=== PATIENT | female | born 1995 | race Caucasian/White ===

== ENCOUNTER 2019-06-05 11:16 | Day surgery (SDC) | payer OTHER ==
[~2019-06-05] VITALS: Ht 160 cm; Wt 86.3 kg
[2019-06-05] VITALS (16 sets, daily range): BP systolic 110–140; BP diastolic 56–78; PULSE 70–98; RESP 10–26; Ht 160 cm; Wt 86.3 kg
[~2019-06-05 11:16] MED LIST: CEFAZOLIN 2 GM/50 ML (PMX) 50 ML IVPB ONE; SOD CHLORIDE 0.9% 1,000 ML IV SCH
[2019-06-05] MEDS ORDERED: OMEP40CA6 ORAL (12:13)
--- NOTE | 2019-06-05 14:39 | PREAC ---
Date/Time of Note Date/Time of Note DATE: 06/05/19 TIME: 14:38 Anesthesia Eval and Record Evaluation Time Pre-Procedure Interview DATE: 06/05/19 TIME: 14:38 Age 23 Sex female NPO: 8 hrs Preoperative diagnosis gallstones Planned procedure Lap Jayna Past Medical History Past Medical History: Includes GI: GERD, Obesity Surgery & Anesthesia Issues No known issue Meds Anticoagulation: No Beta Rose within 24 hr: No Reason Beta Rose not given: Pt. not on B-Rose Reported Medications Omeprazole* (Omeprazole*) 40 Mg Capsule.dr, 1 CAP ORAL DAILY 06/05/19 Current Medications Sodium Chloride 1,000 ml @ 75 mls/hr [id number] IV ; Start 06/05/19 at 06:00; Stop 06/05/19 at 22:00 Meds reviewed: Yes Allergies Coded Allergies: No Known Allergy (Unverified , 06/05/19) Allergies Reviewed: Yes Labs/Studies Labs Reviewed: Reviewed by anesthesiologist test: Negative Pre-procedure Exam Last vitals Vital Signs Date Temp Pulse Resp B/P (MAP) Pulse Ox O2 O2 Flow FiO2 Time Delivery Rate 06/05/19 97.3 98 16 110/68 97 Room Air 12:07 (82) Airway: Adequate mouth opening, Adequate thyromental dist Mallampati: Mallampati II Teeth: Normal Lung: Normal Heart: Normal ASA Physical Status ASA physical status: 2 Emergency: None Planned Anesthetic General/MAC: ETT Nerve block: TAP (bilateral) Pre-operative Attestations Prior to commencing anesthesia and surgery, the patient was re-evaluated, there was verification of: *The patient's identity *The results of appropriate recent lab work and preoperative vital signs *The above evaluation not changing prior to induction *Anesthetic plan, risk benefits, alternative and complications discussed with patient/family; questions answered; patient/family understands, accepts and wishes to proceed. ISHA LANDEROS Jun 05, 2019 14:39
[2019-06-05] MEDS ORDERED: FENTAnyl 50 MCG/ML VIAL IV PRN ×2 (15:00)
[2019-06-05] MEDS ORDERED: ONDANSETRON 4 MG INJ IV PRN (15:00)
[2019-06-05] MEDS ORDERED: MEPERIDINE 25 MG INJ IV PRN (15:00)
[2019-06-05] MEDS ORDERED: METOCLOPRAMIDE 10 MG INJ IV PRN (15:00)
[2019-06-05] MEDS ORDERED: DIPHENHYDRAMINE 50 MG INJ IV PRN (15:00)
[2019-06-05] MEDS ORDERED: ALBUTEROL 0.083% (NEB) 2.5 MG/3 ML AMP HHN PRN (15:00)
[2019-06-05] MEDS ORDERED: HYDROmorphONE 1 MG/5 ML IV SYRINGE IV PRN ×3 (15:00)
[2019-06-05] MEDS ORDERED: DESFLURANE 15 MIN ONE (15:11)
[2019-06-05] MEDS ORDERED: FENTAnyl 50 MCG/ML VIAL ONE (15:11)
[2019-06-05] MEDS ORDERED: SUCCINYLCHOLINE CHLORIDE 100 MG/5 ML SYG IV ONE (15:11)
[2019-06-05] MEDS ORDERED: LIDOCAINE 1% (MDV) 20 ML INJ ONE (15:18)
[2019-06-05] MEDS ORDERED: PROPOFOL 20 ML ONE (15:53)
[2019-06-05] MEDS ORDERED: SUGAMMADEX SODIUM 200 MG/2 ML VIAL IV ONE (15:53)
[2019-06-05] MEDS ORDERED: CEFAZOLIN 1 GM INJ ONE (15:53)
[2019-06-05] MEDS ORDERED: ROCURONIUM 50 MG INJ ONE (15:53)
--- NOTE | 2019-06-05 16:06 | OPR ---
Date/Time of Note Date/Time of Note DATE: 06/05/19 TIME: 16:02 Operative Report Procedure Date: Jun 05, 2019 Preoperative Diagnosis symptomatic gallstones Postoperative Diagnosis same Operation/Procedure Performed laparoscopic cholecystectomy Surgeon see signature line Car Storer Dean Maher Anesthesia Type: general Estimated Blood Loss: 0 - 10 ml's Transfusion none Specimen gallbladder Grafts/Implants none Complications none Pt Condition Post Procedure: stable Indications This is a 23-year-old female with symptomatic gallstones. She requests surgical excision of her gallbladder. Risks alternatives benefits and personnel were discussed the patient. Patient expresses understanding and consents to the operation. Procedure Description Patient is taken to the OR and prepped and draped in usual sterile fashion. Surgical timeout was performed. IV antibiotics were given. Infraumbilical transverse incision is made with a 15 blade. Dissection with cautery was carried onto the fascia. The fascia is grasped with Roseanna's and divided with curved Calvin scissors. 0 Vicryl use this was placed into the fascia. Aggarwal trocar was introduced. Pneumoperitoneum was established. Midepigastric 12 mm optical trochars placed under direct visualization. Right upper quadrant right upper flank 5 mm optical trochars were placed under direct visualization. Upon initial inspection there is some adhesions to the gallbladder which taken down bluntly. The gallbladder was dilated. The gallbladder was grasped the fundus and retracted and lateral and cephalad direction. Careful dissection was made of the cystic duct and cystic artery with [place] graspers. The critical view was established. The cystic duct is divided with the clips proximal to distal and the division is performed laparoscopic scissors. Cystic artery was divided to close proximal to distal and the divisions performed lap scopic scissors. The gallbladder was taken of the gallbladder bed. Good hemostasis ensured. The gallbladder is retrieved Endo Catch bag. Minimal suction irrigation was used. All ports were removed under direct visualization. 0 Vicryl use this was tied down. Skin is closed and skin jeannette. A tap block was provided with the anesthesiologist at the beginning of the case. Dry dressings were applied. Shar QUICK Jun 05, 2019 16:06
[2019-06-05] MEDS ORDERED: HYDROCODONE/APAP (5/325) TAB PO ONE (16:30)
--- NOTE | 2019-06-06 07:19 | PAC ---
Date/Time of Note Date/Time of Note DATE: 06/06/19 TIME: 07:18 Post-Anesthesia Notes Post-Anesthesia Note Last documented vital signs Vital Signs Date Temp Pulse Resp B/P (MAP) Pulse Ox O2 O2 Flow FiO2 Time Delivery Rate 06/05/19 78 15 115/61 95 Room Air 17:11 (79) 06/05/19 98.8 17:10 06/05/19 2.0 16:51 Activity: WNL Respiratory function: WNL Cardiovascular function: WNL Mental status: Baseline Pain reasonably controlled: Yes Hydration appropriate: Yes Nausea/Vomiting absent: Yes ISHA LANDEROS Jun 06, 2019 07:18
== END 2019-06-05 18:39 | disposition home or self-care (01) ==
LOC: SDS 11:16
PROVIDERS: ATTEND Surgery
DX: K80.10 Calculus of gallbladder with chronic cholecystitis without obstruction (principal)
CPT/HCPCS: 47562; 84703; J0690; J1170; J2175; J2405; J3010; Z7512; Z7610; 88304